=== PATIENT | male | born 2000 | race Native Hawaiian/Other Pacific Islander ===

== ENCOUNTER 2022-07-14 10:16 | Emergency (ER) | payer OTHER ==
[~2022-07-14] VITALS: Ht 190.5 cm; Wt 77.1 kg
[2022-07-14 11:38] VITALS: BP 121/78; TEMP 98.3
== END 2022-07-14 11:38 | disposition home or self-care (01) ==
LOC: ED 10:16
DX: S61.215A Laceration without foreign body of left ring finger without damage to nail, initial encounter (principal); W45.8XXA Other foreign body or object entering through skin, initial encounter; Y92.89 Other specified places as the place of occurrence of the external cause
CPT/HCPCS: 90471; 90715; 99283